=== PATIENT | female | born 1955 | race African-American/Black ===

== ENCOUNTER 2023-04-17 10:10 | Outpatient (CLI) | payer OTHER | END 2023-04-17 10:11 | disposition home or self-care (01) | LOC: CSHMAMMO 10:10 | PROVIDERS: ATTEND Nurse Practitioner Family | DX: Z12.31 Encounter for screening mammogram for malignant neoplasm of breast (principal); M85.88 Other specified disorders of bone density and structure, other site; Z78.0 Asymptomatic menopausal state | CPT/HCPCS: 77063; 77067; 77080 ==

== ENCOUNTER 2024-04-30 13:49 | Outpatient (CLI) | payer OTHER | END 2024-04-30 13:50 | disposition home or self-care (01) | LOC: CSHMAMMO 13:49 | PROVIDERS: ATTEND Nurse Practitioner Family | DX: Z12.31 Encounter for screening mammogram for malignant neoplasm of breast (principal) | CPT/HCPCS: 77063; 77067 ==

== ENCOUNTER 2024-04-30 14:21 | Outpatient (CLI) | payer OTHER | END 2024-04-30 14:22 | disposition home or self-care (01) | LOC: CSHCT 14:21 | PROVIDERS: ATTEND Family Medicine | DX: R51.9 Headache, unspecified (principal) | CPT/HCPCS: 70450 ==

== ENCOUNTER 2025-05-01 11:15 | Outpatient (CLI) | payer OTHER | END 2025-05-01 11:16 | disposition home or self-care (01) | LOC: CSHMAMMO 11:15 | PROVIDERS: ATTEND Family Medicine | DX: Z12.31 Encounter for screening mammogram for malignant neoplasm of breast (principal); Z91.89 Other specified personal risk factors, not elsewhere classified | CPT/HCPCS: 77063; 77067 ==